=== PATIENT | female | born 1975 | race Caucasian/White ===

== ENCOUNTER → 2016-04-07 | Outpatient (CLI) | payer BC, OTHER ==
[~2016-04-07] MED LIST: BACTRIM DS 8001 TA1 PO; KEFLEX500 MG PO; NORCO 325 MG-51 TAB PO; SYNTHROID0.1 MG PO
[2016-04-07 13:27] LABS: BASO % 0.4 % (0.0-1.0); EOS # 0.2 10*3/uL (0.0-0.4); HEMATOCRIT 42.2 % (37.0-47.0); HEMOGLOBIN 14.5 g/dl (12.0-16.0); LYMPH # 2.5 10*3/uL (1.3-4.4); LYMPH % 26.8 % (27.0-41.0); MEAN CELL VOLUME 93.2 fl (81.0-99.0); MEAN CORPUSCULAR HGB CONC 34.4 g/dl (33.0-37.0); MEAN PLATELET VOLUME 9.2 fl (9.6-12.3); MONO # 0.5 10*3/uL (0.1-1.0); MONO % 5.7 % (3.0-9.0); NEUT # 6.1 10*3/uL (2.3-7.9); NEUT % 64.9 % (47.0-73.0); PLATELET COUNT AUTOMATED 430 10*3/uL (130-400); RED BLOOD COUNT 4.53 10*6/uL (4.10-5.10); RED CELL DISTRI WIDTH 12.6 % (0-14.5); WHITE BLOOD COUNT 9.4 10*3/uL (4.8-10.8)
== END | disposition home or self-care (01) ==
LOC: LAB 13:00
PROVIDERS: Internal Medicine Hematology & Oncology
DX: D75.9 Disease of blood and blood-forming organs, unspecified (principal)

== ENCOUNTER → 2016-06-23 | Outpatient (CLI) | payer BC, OTHER | LOC: CARD 04-30 09:30 | DX: R01.1 Cardiac murmur, unspecified (principal) ==

== ENCOUNTER → 2016-08-08 | Outpatient (CLI) | payer BC, OTHER ==
[2016-08-08 09:44] LABS: BASO % 0.4 % (0.0-1.0); EOS # 0.2 10*3/uL (0.0-0.4); EOS % 2.3 % (1.0-4.0); HEMATOCRIT 42.6 % (37.0-47.0); HEMOGLOBIN 14.1 g/dl (12.0-16.0); IG # 0.1 10*3/uL (0.0-0.1); LYMPH # 2.8 10*3/uL (1.3-4.4); LYMPH % 28.2 % (27.0-41.0); MEAN CORPUSCULAR HGB 31.1 pg (27.0-31.0); MEAN CORPUSCULAR HGB CONC 33.1 g/dl (33.0-37.0); MEAN PLATELET VOLUME 9.3 fl (9.6-12.3); MONO # 0.7 10*3/uL (0.1-1.0); MONO % 6.7 % (3.0-9.0); NEUT # 6.1 10*3/uL (2.3-7.9); NEUT % 61.9 % (47.0-73.0); PLATELET COUNT AUTOMATED 476 10*3/uL (130-400); RED BLOOD COUNT 4.53 10*6/uL (4.10-5.10); WHITE BLOOD COUNT 9.9 10*3/uL (4.8-10.8)
== END | disposition home or self-care (01) ==
LOC: LAB 09:05
PROVIDERS: Internal Medicine Hematology & Oncology
DX: D75.9 Disease of blood and blood-forming organs, unspecified (principal)

== ENCOUNTER → 2016-11-06 | Outpatient (CLI) | payer OTHER ==
[2016-11-06 13:03] LABS: BASO % 0.3 % (0.0-1.0); EOS # 0.2 10*3/uL (0.0-0.4); HEMATOCRIT 42.2 % (37.0-47.0); HEMOGLOBIN 14.2 g/dl (12.0-16.0); LYMPH # 3.6 10*3/uL (1.3-4.4); LYMPH % 40.4 % (27.0-41.0); MEAN CELL VOLUME 93.8 fl (81.0-99.0); MEAN CORPUSCULAR HGB 31.6 pg (27.0-31.0); MEAN CORPUSCULAR HGB CONC 33.6 g/dl (33.0-37.0); MEAN PLATELET VOLUME 9.8 fl (9.6-12.3); MONO # 0.6 10*3/uL (0.1-1.0); MONO % 6.5 % (3.0-9.0); NEUT # 4.5 10*3/uL (2.3-7.9); NEUT % 50.5 % (47.0-73.0); PLATELET COUNT AUTOMATED 413 10*3/uL (130-400); WHITE BLOOD COUNT 8.8 10*3/uL (4.8-10.8)
== END | disposition home or self-care (01) ==
LOC: LAB 12:25
PROVIDERS: Internal Medicine Hematology & Oncology
DX: D75.9 Disease of blood and blood-forming organs, unspecified (principal)

== ENCOUNTER 2018-04-01 | Emergency (ER) | payer OTHER ==
[2018-04-01 16:17] LABS: BILIRUBIN NEGATIVE (NEGATIVE); BLOOD 1+ (NEGATIVE); CLARITY SL CLOUDY (CLEAR); COLOR YELLOW (YELLOW); GLUCOSE NEGATIVE (NEGATIVE); KETONE NEGATIVE (NEGATIVE); LEUKO ESTERASE NEGATIVE (NEGATIVE); NITRITE NEGATIVE (NEGATIVE); PH 6.5 (5.0-9.0); SPECIFIC GRAVITY 1.025 (1.005-1.030); UROBILINOGEN 0.2 E.U./dl (0.2-1.0)
[2018-04-01 16:33] LABS: MUCOUS TRACE; WBC 0-2 wbc/hpf (0-5)
[2018-04-01 16:59] LABS: BASO # 0.1 10*3/uL (0.0-0.1); BASO % 0.7 % (0.0-1.0); EOS # 0.2 10*3/uL (0.0-0.4); EOS % 1.8 % (1.0-4.0); HEMATOCRIT 44.8 % (37.0-47.0); HEMOGLOBIN 15.2 g/dl (12.0-16.0); LYMPH # 3.7 10*3/uL (1.3-4.4); LYMPH % 36.2 % (27.0-41.0); MEAN CELL VOLUME 98.2 fl (81.0-99.0); MEAN CORPUSCULAR HGB 33.3 pg (27.0-31.0); MEAN CORPUSCULAR HGB CONC 33.9 g/dl (33.0-37.0); MEAN PLATELET VOLUME 8.9 fl (9.6-12.3); MONO # 0.6 10*3/uL (0.1-1.0); MONO % 5.7 % (3.0-9.0); NEUT # 5.7 10*3/uL (2.3-7.9); NEUT % 55.3 % (47.0-73.0); PLATELET COUNT AUTOMATED 482 10*3/uL (130-400); RED BLOOD COUNT 4.56 10*6/uL (4.10-5.10); RED CELL DISTRI WIDTH 14.3 % (0-14.5); WHITE BLOOD COUNT 10.2 10*3/uL (4.8-10.8)
[2018-04-01 17:11] LABS: ALBUMIN 4.1 gm/dl (3.1-4.5); ALKALINE PHOSPHATASE 62 U/L (45-117); BUN 11 mg/dl (7-24); CHLORIDE 108 mmol/L (98-107); CREATININE 0.99 mg/dL (0.55-1.02); SGOT/AST 15 IU/L (3-35); SGPT/ALT 22 U/L (12-78); SODIUM 140 mmol/L (136-145); TOTAL PROTEIN 7.6 gm/dL (6.4-8.2)
[2018-04-01] MEDS ORDERED: ROBAXIN500 M1 PO (17:56)
[2018-04-01] MEDS ORDERED: ANAPROX DS550 MG PO (17:56)
== END 2018-04-01 18:09 | disposition home or self-care (01) ==
PROVIDERS: Physician Assistant
DX: R10.9 Unspecified abdominal pain (principal); R31.9 Hematuria, unspecified; R11.0 Nausea; Z79.2 Long term (current) use of antibiotics; Z79.899 Other long term (current) drug therapy

== ENCOUNTER → 2018-11-15 | Outpatient (CLI) | payer OTHER ==
[~2018-11-15] MED LIST changes: +ANAPROX DS550 MG PO; +ROBAXIN500 M1 PO
== END | disposition home or self-care (01) ==
LOC: US 16:46
DX: R59.1 Generalized enlarged lymph nodes (principal)

== ENCOUNTER → 2023-06-24 | Outpatient (CLI) | payer OTHER | END | disposition home or self-care (01) | LOC: US 03:12 | PROVIDERS: ATTEND Nurse Practitioner Family | DX: E04.1 Nontoxic single thyroid nodule (principal); E05.00 Thyrotoxicosis with diffuse goiter without thyrotoxic crisis or storm; E61.8 Deficiency of other specified nutrient elements ==

== ENCOUNTER → 2024-01-28 | Outpatient (CLI) | payer OTHER | END | disposition home or self-care (01) | LOC: US 11:00 | PROVIDERS: ATTEND Nurse Practitioner Family | DX: E04.1 Nontoxic single thyroid nodule (principal); E05.00 Thyrotoxicosis with diffuse goiter without thyrotoxic crisis or storm ==

== ENCOUNTER → 2024-09-05 | Outpatient (CLI) | payer OTHER ==
[2024-09-05 11:21] LABS: FREE T4 1.22 ng/dl (0.89-1.76); TOTAL PROTEIN 6.6 gm/dL (6.0-8.0)
== END | disposition home or self-care (01) ==
LOC: LAB 10:24
PROVIDERS: ATTEND Internal Medicine
DX: E78.5 Hyperlipidemia, unspecified (principal); E03.9 Hypothyroidism, unspecified; E55.9 Vitamin D deficiency, unspecified

== ENCOUNTER → 2024-10-27 | Outpatient (CLI) | payer OTHER | END | disposition home or self-care (01) | LOC: US 09:58 | PROVIDERS: ATTEND Internal Medicine | DX: E04.2 Nontoxic multinodular goiter (principal); R59.0 Localized enlarged lymph nodes ==

== ENCOUNTER → 2025-03-08 | Outpatient (CLI) | payer OTHER ==
[2025-03-08 13:15] LABS: FREE T4 1.11 ng/dl (0.89-1.76); LDL CHOLESTEROL 130.0 mg/dL (9-159); SGPT/ALT 13.0 U/L (5-49)
== END | disposition home or self-care (01) ==
LOC: LAB 12:25
PROVIDERS: ATTEND Internal Medicine
DX: E03.9 Hypothyroidism, unspecified (principal); E78.5 Hyperlipidemia, unspecified; E55.9 Vitamin D deficiency, unspecified; E05.00 Thyrotoxicosis with diffuse goiter without thyrotoxic crisis or storm